=== PATIENT | female | born 1940 | race Caucasian/White ===

== ENCOUNTER 2019-07-30 09:50 | Outpatient (CLI) | payer MEDICARE, SELFPAY ==
[2019-07-30 10:01] LABS: Hemoglobin 10.4 g/dL (11.7-13.8); Mean Corpuscular HGB Conc 31.5 g/dL (32.0-36.0); Mean Corpuscular Hemoglobin 30.7 pg (27.0-31.0); Mean Corpuscular Volume 97.3 fL (78.0-102.0); Mean Platelet Volume 7.9 fl (9.2-11.8); Platelet Count Result 196 K/mm3 (150-420); Red Blood Count 3.39 M/mm3 (4.20-5.40); Red Cell Distribution Width 13.1 % (11.6-14.4); White Blood Count 4.4 K/mm3 (4.8-10.8)
[2019-07-30 13:13] LABS: Blood Urea Nitrogen 29 mg/dL (7-18); Calcium 8.6 mg/dL (8.5-10.1); Carbon Dioxide 27 mmol/L (21-32); Chloride 104 mmol/L (98-108); Estimated Glomerular Filt Rate 45; Glucose 87 mg/dL (70-99); Osmolality Calculated 294 mOsm/kg (285-295); Sodium 140 mmol/L (136-145)
== END 2019-07-30 09:51 | disposition home or self-care (01) ==
LOC: CHSLAB 09:52
PROVIDERS: PCP Family Medicine; Visit Provider Family Medicine
DX: R42 Dizziness and giddiness (principal)
CPT/HCPCS: 36415; 80048; 85027

== ENCOUNTER 2019-10-24 08:47 | Outpatient (CLI) | payer MEDICARE, OTHER, SELFPAY ==
--- NOTE | ~2019-10-24 | CT_ITS ---
EXAMINATION: CT brain wo con DATE: 10/24/2019 11:34 INDICATION: Head injury. TECHNIQUE: Computed tomography (CT) of the head was performed without intravenous contrast. The mA wa s adjusted according to patient size. Iterative reconstruction technique was employed. The dose-lengt h product was 605.33 mGy-cm. COMPARISON: Head CT 09/04/2018 FINDINGS: There are scattered areas of low attenuation in the cerebral white matter, which is within normal limits for the patient's age. There is no intracranial hemorrhage, acute infarction, or abnorm al intracranial mass lesion. The ventricles are normal in size. There are likely changes of ocular le ns replacement surgeries. There is mild mucosal thickening in the ethmoid sinuses. The mastoid air ce lls are normal. There is superior scalp soft tissue swelling. IMPRESSION: 1. Normal aging brain. Reviewed, dictated and finalized at location E. IMPRESSION: 1. Normal aging brain.
[2019-10-27 21:35] LABS: Vitamin D 1,25 (OH)2 Total 28 pg/mL (18-72); Vitamin D2 1,25 (OH)2 16 pg/mL; Vitamin D3 1,25 (OH)2 12 pg/mL
== END 2019-10-24 08:48 | disposition home or self-care (01) ==
PROVIDERS: PCP Family Medicine; Visit Provider Family Medicine
DX: S09.90XA Unspecified injury of head, initial encounter (principal); M53.9 Dorsopathy, unspecified; M17.10 Unilateral primary osteoarthritis, unspecified knee
CPT/HCPCS: 36415; 70450; 82652

== ENCOUNTER 2019-12-28 10:25 | Outpatient (CLI) | payer MEDICARE, SELFPAY ==
[2019-12-28 12:00] LABS: Thyroid Stimulating Hormone Reflex 0.41 u/IU/mL (0.36-3.74)
== END 2019-12-28 10:26 | disposition home or self-care (01) ==
PROVIDERS: PCP Family Medicine
DX: R94.6 Abnormal results of thyroid function studies (principal)
CPT/HCPCS: 36415; 84443

== ENCOUNTER 2020-01-31 10:38 | Outpatient (CLI) | payer MEDICARE, SELFPAY | END 2020-01-31 10:39 | disposition home or self-care (01) | LOC: CHSLAB 10:41 | PROVIDERS: PCP Family Medicine | DX: M85.80 Other specified disorders of bone density and structure, unspecified site (principal) | CPT/HCPCS: 36415; 82306 ==

== ENCOUNTER 2020-03-24 10:00 | Outpatient (CLI) | payer MEDICARE, OTHER, SELFPAY ==
--- NOTE | ~2020-03-24 | US_ITS ---
EXAMINATION: US thyroid DATE: 03/24/2020 10:37 INDICATION: Thyroid nodule. TECHNIQUE: Multiple ultrasound images of the thyroid were obtained. COMPARISON: Ultrasound 01/19/2019 FINDINGS: The right thyroid lobe measures 5.9 x 1.4 x 1.9 cm. The left thyroid lobe measures 5.5 x 1.9 x 2.3 c m. In the right thyroid lobe, there is a 17 mm solid, isoechoic, fkpum-fffk-epqx nodule with lobulat ed margin without echogenic foci (TI-RADS TR4). In the right thyroid lobe, there is a 14 mm solid, hy poechoic, ijusx-khfx-zhok nodule with ill-defined margin without echogenic foci (TR4). In the thyroid isthmus, there is a 20 mm predominantly solid, isoechoic, hlkex-awyi-pujj nodule with lobulated roberto in without echogenic foci (TR4). In the left thyroid lobe, there is a 17 mm predominantly solid, hypo echoic, hqlxc-hjgw-xhqn nodule with ill-defined margin without echogenic foci (TR4). There are multip le smaller nodules in the thyroid. IMPRESSION: 1. Thyroid nodules, likely stable from 01/19/2019 considering differences in technique. Biopsy of 2 no dules on 03/07/2019 gave benign results. Reviewed, dictated and finalized at location A. IMPRESSION: 1. Thyroid nodules, likely stable from 01/19/2019 considering differences in bertha hnique. Biopsy of 2 nodules on 03/07/2019 gave benign results.
== END 2020-03-24 10:01 | disposition home or self-care (01) ==
LOC: CHSIMG 10:06
PROVIDERS: PCP Family Medicine
DX: E04.2 Nontoxic multinodular goiter (principal)
CPT/HCPCS: 76536

== ENCOUNTER 2020-07-15 10:07 | Outpatient (CLI) | payer MEDICARE, SELFPAY | END 2020-07-15 10:08 | disposition home or self-care (01) | PROVIDERS: PCP Family Medicine | DX: M81.0 Age-related osteoporosis without current pathological fracture (principal) | CPT/HCPCS: 36415; 82306 ==

== ENCOUNTER 2021-01-14 10:25 | Outpatient (NON) | payer MEDICARE, SELFPAY | END 2021-01-14 10:26 | disposition home or self-care (01) | LOC: CHSLAB 10:26 | PROVIDERS: Visit Provider Family Medicine | DX: L73.9 Follicular disorder, unspecified (principal) | CPT/HCPCS: 88305 ==

== ENCOUNTER 2021-03-13 12:16 | Outpatient (CLI) | payer MEDICARE, OTHER, SELFPAY ==
--- NOTE | ~2021-03-13 | US_ITS ---
EXAMINATION: US thyroid DATE: 03/13/2021 12:47 INDICATION: Multiple thyroid nodules. TECHNIQUE: Multiple ultrasound images of the thyroid were obtained. COMPARISON: Ultrasound 03/24/2020, 01/19/2019 FINDINGS: The right thyroid lobe measures 5.5 x 1.7 x 2.1 cm. The left thyroid lobe measures 5.4 x 2.2 x 2.6 c m. There are numerous nodules in the thyroid of similar ultrasound appearance. In the right thyroid lobe, there is a 16 mm solid, isoechoic, zsneb-zsbk-wsmf nodule with smooth margin without echogenic foci (TI-RADS TR3). In the right thyroid lobe, there is a 14 mm solid, hypoechoic, uaqhk-kbnm-gtkd ti me than tall nodule with smooth margin without echogenic foci (TR4). In the right thyroid lobe, there is a 16 mm solid, hypoechoic, wlzeo-nwim-iidu nodule with ill-defined margin without echogenic foci (TR4). In the left thyroid lobe, there is a 19 mm predominantly solid, hypoechoic, ndkom-hdee-zngq no dule with lobulated margin without echogenic foci (TR4). IMPRESSION: 1. Multinodular goiter, stable from 01/19/2019 considering differences in technique. Biopsy of 2 nodul es on 03/07/2019 gave benign results. Reviewed, dictated and finalized at location A. IMPRESSION: 1. Multinodular goiter, stable from 01/19/2019 considering differences in techni que. Biopsy of 2 nodules on 03/07/2019 gave benign results.
== END 2021-03-13 12:17 | disposition home or self-care (01) ==
LOC: CHSIMG 12:17
PROVIDERS: PCP Family Medicine
DX: E04.2 Nontoxic multinodular goiter (principal)
CPT/HCPCS: 76536

== ENCOUNTER 2021-07-20 14:13 | Outpatient (CLI) | payer MEDICARE, SELFPAY ==
[2021-07-20 14:31] LABS: Hematocrit 34.6 % (35.0-42.0); Hemoglobin 11.1 g/dL (11.7-13.8); Mean Corpuscular HGB Conc 32.1 g/dL (32.0-36.0); Mean Corpuscular Hemoglobin 32.1 pg (27.0-31.0); Mean Platelet Volume 8.6 fl (9.2-11.8); Platelet Count Result 258 K/mm3 (150-420); Red Blood Count 3.46 M/mm3 (4.20-5.40); Red Cell Distribution Width 12.3 % (11.6-14.4); White Blood Count 5.7 K/mm3 (4.8-10.8)
[2021-07-20 15:35] LABS: Alanine Aminotransferase 17 U/L (14-59); Albumin Level 3.7 g/dL (3.4-5.0); Alkaline Phosphatase 81 U/L (46-116); Anion Gap 11 mmol/L (8-16); Aspartate Amino Transferase 17 U/L (15-37); Bilirubin,Total 0.4 mg/dL (0.00-1.00); Blood Urea Nitrogen 16 mg/dL (7-18); Calcium 8.8 mg/dL (8.5-10.1); Carbon Dioxide 26 mmol/L (21-32); Chloride 105 mmol/L (98-108); Estimated Glomerular Filt Rate 45; Free T4 Free Thyroxine 0.83 ng/dL (0.76-1.46); Glucose 86 mg/dL (70-99); Osmolality Calculated 294 mOsm/kg (285-295); Potassium 4.5 mmol/L (3.5-5.1); Sodium 142 mmol/L (136-145); Total Protein 6.5 g/dL (6.4-8.2)
[2021-07-23 02:45] LABS: Thyroid Peroxidase Antibodies 185 IU/mL (<9)
[2021-07-23 05:57] LABS: Total Triiodothyronine (T3) 128 ng/dL (76-181)
[2021-07-23 14:11] LABS: Thyroid Stimulating Immunoglob <89 % baseline (<140)
== END 2021-07-20 14:14 | disposition home or self-care (01) ==
LOC: CHSLAB 14:15
PROVIDERS: PCP Family Medicine; Visit Provider Family Medicine
DX: E11.9 Type 2 diabetes mellitus without complications (principal); I10 Essential (primary) hypertension
CPT/HCPCS: 36415; 80053; 84439; 84443; 84445; 84480; 85027; 86376

== ENCOUNTER 2021-09-22 14:27 | Outpatient (CLI) | payer MEDICARE, OTHER, SELFPAY | END 2021-09-22 14:28 | disposition home or self-care (01) | LOC: CHSOUTPT 14:31 | PROVIDERS: PCP Family Medicine; Visit Provider Specialist | DX: C44.41 Basal cell carcinoma of skin of scalp and neck (principal) | CPT/HCPCS: 88305 ==

== ENCOUNTER 2022-05-25 12:30 | Emergency (ER) | payer MEDICARE, OTHER, SELFPAY ==
--- NOTE | ~2022-05-25 | XR_ITS ---
EXAMINATION: XR knee RT 2V DATE: 05/25/2022 13:27 INDICATION: Right knee pain post fall TECHNIQUE: AP and flexed lateral views of the right knee were obtained. COMPARISON: None. FINDINGS: Diffuse osteopenia. Right total knee arthroplasty with patellar resurfacing which is in near-anatomic alignment. No periprosthetic lucency to suggest loosening. No fracture. Soft tissues are unremarkabl e with no right knee joint effusion. IMPRESSION: 1. Right total knee arthroplasty with no joint effusion or acute osseous abnormality. Reviewed, dictated and finalized at location L. TICKET CLERK IMPRESSION: 1. Right total knee arthroplasty with no joint effusion or acute osseous abnorm ality.
--- NOTE | ~2022-05-25 | XR_ITS ---
EXAMINATION: XR hip RT 2V w AP pelvis DATE: 05/25/2022 13:26 INDICATION: Right hip pain. Fall. TECHNIQUE: An anteroposterior view pelvis and 2 views of right hip were obtained. COMPARISON: None. FINDINGS: There is lumbar levoscoliosis and severe spondylosis. There is a total left hip arthroplast y in near-anatomic alignment. There is an intertrochanteric fracture of proximal right femur in near- anatomic alignment. There is severe right hip osteoarthritis. Osteitis pubis is noted. IMPRESSION: 1. Nondisplaced intertrochanteric fracture of proximal right femur. 2. Severe right hip osteoarthritis. 3. Total left hip arthroplasty in near-anatomic alignment. Reviewed, dictated and finalized at location A. L SHARPENER
--- NOTE | ~2022-05-25 | CT_ITS ---
EXAMINATION: CT brain wo con DATE: 05/25/2022 13:10 INDICATION: Head injury. TECHNIQUE: Computed tomography (CT) of the head was performed without intravenous contrast. The mA wa s adjusted according to patient size. Iterative reconstruction technique was employed. The dose-lengt h product was 605.33 mGy-cm. COMPARISON: Head CT 10/24/2019 FINDINGS: There are scattered areas of low attenuation in the cerebral white matter, which is within normal limits for the patient's age. There is no intracranial hemorrhage, acute infarction, or abnorm al intracranial mass lesion. The ventricles are normal in size. There are likely changes of ocular le ns replacement surgeries. There is mucosal thickening in the paranasal sinuses. The mastoid air cells are normal. IMPRESSION: 1. Normal aging brain. Reviewed, dictated and finalized at location A. ER RECEPTIONIST IMPRESSION: 1. Normal aging brain.
[2022-05-25 12:39] VITALS: BP 190/78; PULSE 85; RESP 16; TEMP 36.8; O2SAT 100
--- NOTE | 2022-05-25 12:41 | ED.FALL ---
HPI - Fall General Chief Complaint: Fall Stated Complaint: Ambulance Time Seen by Provider: 05/25/22 12:39 Source: patient and family Mode of arrival: ambulatory History of Present Illness HPI Narrative: 81-year-old female with a history of dementia, traumatic brain injury, hypertension, status post bilateral knee replacement and left hip replacement tripped on a rolled carpet at the grocery store and fell on her left side. She presents to the ER with -- right hip pain with decreased range of motion -- right knee pain no head injury or loss of consciousness. MD complaint: fall Onset (ago): hour(s) ( fell 1 hour ago) Fall from: standing Fall witnessed: yes, by bystander Place fall occurred: other ( fell at the grocery) Loss of consciousness: none Prolonged down time: no Symptoms prior to fall: none Context: tripped/slipped Location of injury: other ( right knee, right hip) Location of injury - extremities: Right: thigh and knee Severity: moderate Quality: aching Associated symptoms (after fall): unable to walk Related Data Allergies Allergy/AdvReac Type Severity Reaction Status Date / Time aspirin Allergy Unknown Unknown Verified 05/25/22 12:45 Review of Systems Review of Systems: All systems reviewed & are unremarkable except as noted in HPI and below Constitutional: Constitutional: Reports as per HPI and Reports no additional constitutional complaints Eyes: Eyes: Reports as per HPI and Reports no additional eye complaints ENT: Reports system reviewed and no additional complaints, except as documented and Reports as per HPI Cardiovascular: Cardiovascular: Reports as per HPI and Reports no additional cardiovascular complaints Respiratory: Respiratory: Reports as per HPI and Reports no additional respiratory complaints Gastrointestinal: Gastrointestinal: Reports as per HPI and Reports no additional gastrointestinal complaints Genitourinary: Genitourinary: Reports no additional female genitourinary complaints and Reports as per HPI Musculoskeletal: Musculoskeletal: Reports no additional musculoskeletal complaints and Reports as per HPI Comments: Right hip and right knee pain with decreased range of motion Integumentary/Breasts: Skin/Breast: Reports system reviewed and no additional complaints, except as docu and Reports as per HPI Comments: status post left mastectomy for breast cancer Neurologic: Reports system reviewed and no additional complaints, except as documented and Reports as per HPI Psychiatric: Psychiatric: Reports no additional psychiatric complaints and Reports as per HPI Endocrine: Endocrine: Reports no additional endocrine complaints and Reports as per HPI Hematologic/Lymphatic: Hematologic/Lymphatic: Reports no additional hematologic/lymphatic complaints and Reports as per HPI Allergic/Immunologic: Allergic/Immunologic: Reports no additional allergic/immunologic complaints and Reports as per HPI PMFSH Past Medical History Medical History Breast cancer Left Breast Removed. Hypertension Osteoporosis Overweight TBI (traumatic brain injury) Surgical History Surgical History History of bilateral knee replacement History of left hip replacement Hx of cataract surgery Hx of tonsillectomy Family History Family History Father Cancer Mother Acute myocardial infarction Rheumatoid arthritis Heart disease Mother Acute myocardial infarction Family history of rheumatoid arthritis Father Family history of malignant neoplasm Social History Social History Smoking status: Never smoker Additional living arrangements comments: . 4 children. 2 step-children. Exam Const: General: no acute distress Orientation/consciousness: pat
[2022-05-25] MEDS: HYDROcodone/acetaminophen (*CRX) 5-325 MG TABLET 1 TAB PO (13:26)
--- NOTE | 2022-05-25 13:42 | ECG_ITS ---
Measurements Intervals [place] Rate: 83 P: 58 KS: 138 QRS: -21 QRSD: 93 T: 62 QT: 357 QTc: 422 Interpretive Statements SINUS RHYTHM BORDERLINE LEFT AXIS DEVIATION [QRS AXIS < -20] ABNORMAL ECG NO PREVIOUS ECG AVAILABLE FOR COMPARISON Electronically Signed On 05-25-2022 15:38:34 FINISHER MACHINE by Zion Rdz M.D.
[2022-05-25 14:13] LABS: Basophils Absolute Auto 0.02 K/mm3 (0.00-0.10); Basophils Percent Auto 0.4 % (0.0-1.0); Eosinophils Absolute Auto 0.06 K/mm3 (0.02-0.50); Eosinophils Percent Auto 1.1 % (1.0-6.0); Hematocrit 36.2 % (35.0-42.0); Hemoglobin 11.1 g/dL (11.7-13.8); Immature Granulocyte Absolute 0.04 K/mm3 (0.00-0.00); Immature Granulocyte Percent A 0.7 % (0.0-0.0); Lymphocytes Absolute Auto 1.28 K/mm3 (1.10-4.50); Lymphocytes Percent Auto 23.2 % (18.0-42.0); Mean Corpuscular HGB Conc 30.7 g/dL (32.0-36.0); Mean Corpuscular Hemoglobin 31.8 pg (27.0-31.0); Mean Corpuscular Volume 103.7 fL (78.0-102.0); Monocytes Absolute Auto 0.37 K/mm3 (0.10-0.90); Monocytes Percent Auto 6.7 % (2.0-11.0); Neutrophils Absolute Auto 3.7 K/mm3 (1.7-7.2); Neutrophils Percent Auto 67.9 % (50.0-70.0); Platelet Count Result 193 K/mm3 (150-420); Red Blood Count 3.49 M/mm3 (4.20-5.40); Red Cell Distribution Width 12.6 % (11.6-14.4); White Blood Count 5.5 K/mm3 (4.8-10.8)
[2022-05-25 14:28] LABS: INR 1.1; Partial Thromboplastin Time 27.9 SEC (23.90-30.70); Prothrombin Time 12.1 Seconds (9.50-12.10)
[2022-05-25] MEDS: LACTATED RINGERS 1,000 ML 150 ML IV CONT (14:29)
[2022-05-25] MEDS: HYDROmorphone HCL INJ (*CRX) 2 MG/ML VIAL 0.5 MG IM (14:30)
[2022-05-25] MEDS: ONDANSETRON HCL ODT 4 MG TABLET PO (14:30)
[2022-05-25 14:35] LABS: Alanine Aminotransferase 23 U/L (14-59); Albumin Level 3.7 g/dL (3.4-5.0); Alkaline Phosphatase 73 U/L (46-116); Anion Gap 9 mmol/L (8-16); Aspartate Amino Transferase 27 U/L (15-37); Bilirubin,Total 0.5 mg/dL (0.00-1.00); Blood Urea Nitrogen 16 mg/dL (7-18); Calcium 8.6 mg/dL (8.5-10.1); Carbon Dioxide 25 mmol/L (21-32); Chloride 107 mmol/L (98-108); Estimated Glomerular Filt Rate 46; Glucose 90 mg/dL (70-99); NT Pro B Type Natriuretic Pept 862 pg/mL (0-450); Osmolality Calculated 293 mOsm/kg (285-295); Potassium 4.1 mmol/L (3.5-5.1); Sodium 141 mmol/L (136-145); Total Protein 6.7 g/dL (6.4-8.2)
[2022-05-25 14:39] LABS: Thyroid Stimulating Hormone 0.73 uIU/mL (0.36-3.74); Troponin I 9.9 ng/L (0.00-60.4)
[2022-05-25 14:51] LABS: SARS-CoV-2 RNA PCR Negative (Negative)
[2022-05-25] MEDS: HYDROmorphone HCL INJ (*CRX) 2 MG/ML VIAL 0.5 MG IV PUSH (17:51)
[2022-05-25 18:00] VITALS: BP 140/90; PULSE 80; RESP 18; TEMP 36.6; O2SAT 96
== END 2022-05-25 18:02 | disposition short-term general hospital (02) ==
PROVIDERS: Emergency Provider Internal Medicine Critical Care Medicine; PCP Family Medicine
DX: S72.141A Displaced intertrochanteric fracture of right femur, initial encounter for closed fracture (principal); F03.90 Unspecified dementia, unspecified severity, without behavioral disturbance, psychotic disturbance, mood disturbance, and anxiety; I10 Essential (primary) hypertension; Z96.653 Presence of artificial knee joint, bilateral; Z85.3 Personal history of malignant neoplasm of breast; Z20.822 Contact with and (suspected) exposure to COVID-19; W01.0XXA Fall on same level from slipping, tripping and stumbling without subsequent striking against object, initial encounter; Y92.512 Supermarket, store or market as the place of occurrence of the external cause
CPT/HCPCS: 36415; 70450; 73502; 73560; 80053; 83880; 84443; 84484; 85025; 85610; 85730; 93005; 96361; 96372; 96374; 99285; A9270; J1170; J7120; U0003; U0005

== ENCOUNTER 2022-07-14 13:21 | Outpatient (CLI) | payer MEDICARE, OTHER, SELFPAY ==
--- NOTE | ~2022-07-14 | XR_ITS ---
EXAMINATION: XR hip RT 2V w AP pelvis DATE: 07/14/2022 13:48 INDICATION: Closed basicervical fracture of right femur. Follow-up. TECHNIQUE: An anteroposterior view pelvis and 2 views of right hip were obtained. COMPARISON: Pelvis and right hip radiographs 05/25/2022 FINDINGS: There is an intertrochanteric fracture of proximal right femur in near-anatomic alignment s tatus post open reduction internal fixation with antegrade intramedullary angelina, femoral head/neck scre w, and distal interlocking screw. There is severe right hip osteoarthritis. Osteitis pubis is noted. IMPRESSION: 1. Intertrochanteric fracture of proximal right femur status post open reduction internal fixation. 2. Severe right hip osteoarthritis. Reviewed, dictated and finalized at location A. ORESIST PRINTER IMPRESSION: 1. Intertrochanteric fracture of proximal right femur status post open reductio n internal fixation. 2. Severe right hip osteoarthritis.
== END 2022-07-14 13:22 | disposition home or self-care (01) ==
LOC: CHSIMG 13:23
PROVIDERS: PCP Family Medicine
DX: S72.041A Displaced fracture of base of neck of right femur, initial encounter for closed fracture (principal); M16.11 Unilateral primary osteoarthritis, right hip
CPT/HCPCS: 73502

== ENCOUNTER 2022-08-24 15:30 | Outpatient (CLI) | payer MEDICARE, OTHER, SELFPAY ==
[2022-08-24 15:54] LABS: Hematocrit 34.1 % (35.0-42.0); Mean Corpuscular HGB Conc 32.3 g/dL (32.0-36.0); Mean Corpuscular Hemoglobin 30.3 pg (27.0-31.0); Mean Corpuscular Volume 93.9 fL (78.0-102.0); Mean Platelet Volume 9.1 fl (9.2-11.8); Platelet Count Result 384 K/mm3 (150-420); Red Blood Count 3.63 M/mm3 (4.20-5.40); White Blood Count 6.9 K/mm3 (4.8-10.8)
[2022-08-24 16:51] LABS: Thyroid Stimulating Hormone Reflex 0.43 u/IU/mL (0.36-3.74)
[2022-08-24 17:40] LABS: Alanine Aminotransferase 221 U/L (14-59); Albumin Level 3.1 g/dL (3.4-5.0); Alkaline Phosphatase 215 U/L (46-116); Anion Gap 15 mmol/L (8-16); Aspartate Amino Transferase 103 U/L (15-37); Bilirubin,Total 0.8 mg/dL (0.00-1.00); Blood Urea Nitrogen 39 mg/dL (7-18); CRP 0.8 mg/dL (0.0-0.9); Calcium 8.6 mg/dL (8.5-10.1); Carbon Dioxide 23 mmol/L (21-32); Chloride 105 mmol/L (98-108); Estimated Glomerular Filt Rate 50; Folic Acid 7.8 ng/mL (8.6->20); Glucose 123 mg/dL (70-99); Osmolality Calculated 306 mOsm/kg (285-295); Potassium 4.2 mmol/L (3.5-5.1); Sodium 143 mmol/L (136-145); Total Protein 6.1 g/dL (6.4-8.2); Vitamin B12 1323 pg/mL (193-986)
[2022-08-30 17:04] LABS: Hepatitis A Antibody IgM Nonreactive; Hepatitis B Core Antibody Nonreactive (Nonreactive); Hepatitis B Surface Antigen Nonreactive (Nonreactive); Hepatitis C Signal to Cutoff 0.04 ratio (<1.00); Hepatitis C Virus Antibody Nonreactive (Nonreactive)
== END 2022-08-24 15:31 | disposition home or self-care (01) ==
LOC: CHSLAB 15:33
PROVIDERS: PCP Family Medicine; Visit Provider Family Medicine
DX: E11.9 Type 2 diabetes mellitus without complications (principal); E53.8 Deficiency of other specified B group vitamins; R53.82 Chronic fatigue, unspecified
CPT/HCPCS: 36415; 80053; 80074; 82607; 82746; 84443; 85027; 86140

== ENCOUNTER 2022-08-28 16:07 | Emergency (ER) | payer MEDICARE, OTHER, SELFPAY ==
--- NOTE | ~2022-08-28 | CT_ITS ---
EXAMINATION: CT brain wo con DATE: 08/28/2022 17:36 INDICATION: Fall. Weakness. TECHNIQUE: Computed tomography (CT) of the head was performed without intravenous contrast. The mA wa s adjusted according to patient size. Iterative reconstruction technique was employed. Exam dose: 60 5.33 mGy-cm total exam DLP. COMPARISON: 05/25/2022 CT brain FINDINGS: Bilateral vertebral artery, basilar artery and bilateral carotid siphon and supraclinoid in ternal carotid artery calcifications. There is nonspecific diminished attenuation of the cerebral whi te matter, likely due to chronic small vessel ischemic changes. No intracranial mass lesion or hemorrhage or cerebrovascular accident is detected. No midline shift o r mass effect effect. Ventricular size is within normal range. There is pneumocephalus. Different diagnosis for pneumocephalus would be neuro trauma, especially the skull base fractures. Other causes include tumor, infection or iatrogenic cause intracranial and jenni gical surgical procedures or local lumbar procedure. No skull fracture is noted. Included paranasal sinuses and mastoid air cells are unremarkable. IMPRESSION: Pneumocephalus, uncertain etiology; no skull fracture is evident Cerebral atherosclerosis Dr. Rizzo discussed the findings of pneumocephalus with emergency room physician Dr. Escobedo. Dr. Miguel coreas indicated there were no external signs of head injury such as bruising or hematoma. Reviewed, dictated and finalized at Location A. Reviewed, dictated and finalized at location A. IMPRESSION: Pneumocephalus, uncertain etiology; no skull fracture is evident Cerebral atherosclerosis Dr. Rizzo discussed the findings of pneumocephalus with emergency room physician Dr. Escobedo. Dr. Cleary indicated there were no external signs of head injury such as bruising or hematoma.
--- NOTE | ~2022-08-28 | XR_ITS ---
XR chest 1V DATE: 08/28/2022 17:37 INDICATION: Fall. TECHNIQUE: Upright frontal views COMPARISON: None FINDINGS: Comminuted fracture of the right humerus including surgical neck and greater tuberosity. Th ere is osteopenia. There is levoscoliosis of the thoracolumbar spine. Normal heart size. Aortic calcification. No hilar or mediastinal enlargement. No pulmonary infiltrate or consolidation, pleural effusion or pulmonary vascular congestion or pneumo thorax. IMPRESSION: Fracture proximal right humerus No active cardiopulmonary disease Aortic atherosclerosis Reviewed, dictated and finalized at location A.
--- NOTE | ~2022-08-28 | XR_ITS ---
XR pelvis 1-2V DATE: 08/28/2022 17:13 INDICATION: Fall today. Right pelvic and hip pain TECHNIQUE: AP pelvis COMPARISON: July 14, 2022 pelvis and right hip FINDINGS: Severe degenerative disc disease at L4-5 and L5-S1. Osteitis pubis. Normal alignment at the pubic symphysis and sacroiliac joints. No pelvic fracture or bone destruction is evident. Severe right hip osteoarthritis. Antegrade intramedullary angelina and compression screw of proximal right femur. Status post left total hip arthroplasty. IMPRESSION: No pelvic or recent hip fracture is evident Severe right hip osteoarthritis Status post ORIF right old intertrochanteric fracture Status post left total hip arthroplasty Reviewed, dictated and finalized at location A.
--- NOTE | ~2022-08-28 | XR_ITS ---
XR shoulder RT min 2V DATE: 08/28/2022 17:12 INDICATION: Fall today. Pain throughout shoulder TECHNIQUE: 3 views of right shoulder COMPARISON: None FINDINGS: There is a comminuted fracture of the proximal right humerus including transverse surgical neck fracture and fracture of the greater tuberosity, with minimal displacement or angulation. No dis location is noted. Diffuse osteopenia. IMPRESSION: Comminuted fracture of the right proximal humerus including transverse surgical neck frac ture and greater tuberosity fracture Osteopenia Reviewed, dictated and finalized at location A. IMPRESSION: Comminuted fracture of the right proximal humerus including transve rse surgical neck fracture and greater tuberosity fracture Osteopenia
[2022-08-28 16:07] VITALS: BP 107/63; PULSE 114; RESP 18; TEMP 36.8; O2SAT 96
--- NOTE | 2022-08-28 16:20 | ED.FALL ---
HPI - Fall General Chief Complaint: Fall Stated Complaint: fall right arm injury Time Seen by Provider: 08/28/22 16:19 Source: patient Mode of arrival: ambulatory Limitations: no limitations History of Present Illness HPI Narrative: 81-year-old female with history TBI, dementia, Renal insufficiency,breast cancer status post left mastectomy, status post left hip rests placement status post bilateral knee replacement, chronic pain with a recurrent falls, Cancer of the scalp status post treatment 7 months ago, saw primary care physician on 08/24/2022 for weight loss, chronic diarrhea and decreased appetite. He ordered blood work which was significant for elevated LFTs. He stopped gabapentin and started her on Lyrica. today the patient's right leg gave out following which she fell on her right side. No head injury. No ENT bleeding. No LOC. The patient presents with -- right shoulder pain with decreased range of motion. -- Right upper arm pain. -- The patient was found down by daughter. unsure as to how long she was on the floor. she does not complain of any other pain. MD complaint: fall Onset (ago): unknown Fall from: standing Fall witnessed: no Place fall occurred: home Loss of consciousness: none Symptoms prior to fall: none Context: other ( Right leg gave out.) Location of injury - extremities: Right: shoulder and arm Severity scale (1-10): 5 Quality: aching Related Data Allergies Allergy/AdvReac Type Severity Reaction Status Date / Time aspirin Allergy Unknown Unknown Verified 08/28/22 16:40 Review of Systems Review of Systems: All systems reviewed & are unremarkable except as noted in HPI and below Constitutional: Constitutional: Reports as per HPI and Reports no additional constitutional complaints Eyes: Eyes: Reports as per HPI and Reports no additional eye complaints ENT: Reports system reviewed and no additional complaints, except as documented and Reports as per HPI Cardiovascular: Cardiovascular: Reports as per HPI and Reports no additional cardiovascular complaints Respiratory: Respiratory: Reports as per HPI and Reports no additional respiratory complaints Gastrointestinal: Gastrointestinal: Reports as per HPI and Reports no additional gastrointestinal complaints Musculoskeletal: Musculoskeletal: Reports no additional musculoskeletal complaints Comments: Right shoulder pain made worse by movement Integumentary/Breasts: Skin/Breast: Reports system reviewed and no additional complaints, except as docu and Reports as per HPI Neurologic: Reports system reviewed and no additional complaints, except as documented and Reports as per HPI Psychiatric: Psychiatric: Reports no additional psychiatric complaints and Reports as per HPI Endocrine: Endocrine: Reports no additional endocrine complaints and Reports as per HPI Hematologic/Lymphatic: Hematologic/Lymphatic: Reports no additional hematologic/lymphatic complaints and Reports as per HPI [facility] Past Medical History Medical History Breast cancer Left Breast Removed. Hypertension Osteoporosis Overweight TBI (traumatic brain injury) Surgical History Surgical History History of bilateral knee replacement History of left hip replacement Hx of cataract surgery Hx of tonsillectomy Family History Family History Father Cancer Mother Acute myocardial infarction Rheumatoid arthritis Heart disease Mother Acute myocardial infarction Family history of rheumatoid arthritis Father Family history of malignant neoplasm Social History Social History Smoking status: Never smoker Living arrangements: with family Additional living arrangements comments: . 4 children. 2 step-children. Occupati
--- NOTE | 2022-08-28 16:47 | ECG_ITS ---
Measurements Intervals [place] Rate: 116 P: [place]: 0 QRS: -16 QRSD: 77 T: 142 QT: 296 QTc: 411 Interpretive Statements ATRIAL FLUTTER/TACHYCARDIA WITH RAPID VENTRICULAR RESPONSE VENTRICULAR PREMATURE COMPLEX DELAYED PRECORDIAL R/S TRANSITION LEFT VENTRICULAR HYPERTROPHY WITH ST-T CHANGE BORDERLINE ST-T WAVE ABNORMALITY- ANTEROLAT/INF LEADS BASELINE ARTIFACT- I, II, III, AVR, AVL, AVF, V1-V6 ABNORMAL ECG COMPARED TO ECG 05/25/2022 13:53:25 ATRIAL FLUTTER/TACHYCARDIA NOW PRESENT Electronically Signed On 08-28-2022 20:47:33 CDT by Víctor Love D.O.
[2022-08-28] MEDS: MORPHINE SULFATE (*CRX) 4 MG/ML INJ 2 MG IM (17:41)
[2022-08-28] MEDS: ONDANSETRON HCL ODT 4 MG TABLET PO (17:41)
[2022-08-28 17:57] LABS: Basophils Absolute Auto 0.02 K/mm3 (0.00-0.10); Basophils Percent Auto 0.2 % (0.0-1.0); Hematocrit 29.7 % (35.0-42.0); Hemoglobin 9.7 g/dL (11.7-13.8); Immature Granulocyte Absolute 0.08 K/mm3 (0.00-0.00); Immature Granulocyte Percent A 0.6 % (0.0-0.0); Lymphocytes Absolute Auto 0.84 K/mm3 (1.10-4.50); Lymphocytes Percent Auto 6.8 % (18.0-42.0); Mean Corpuscular HGB Conc 32.7 g/dL (32.0-36.0); Mean Corpuscular Hemoglobin 30.6 pg (27.0-31.0); Mean Corpuscular Volume 93.7 fL (78.0-102.0); Mean Platelet Volume 8.3 fl (9.2-11.8); Monocytes Absolute Auto 0.91 K/mm3 (0.10-0.90); Monocytes Percent Auto 7.4 % (2.0-11.0); Neutrophils Absolute Auto 10.5 K/mm3 (1.7-7.2); Platelet Count Result 403 K/mm3 (150-420); Red Blood Count 3.17 M/mm3 (4.20-5.40); Red Cell Distribution Width 14.6 % (11.6-14.4); White Blood Count 12.3 K/mm3 (4.8-10.8)
[2022-08-28 18:01] VITALS: BP 97/61; PULSE 110; RESP 18; O2SAT 100
[2022-08-28 18:14] LABS: Alanine Aminotransferase 83 U/L (14-59); Albumin Level 3.1 g/dL (3.4-5.0); Alkaline Phosphatase 133 U/L (46-116); Anion Gap 12 mmol/L (8-16); Aspartate Amino Transferase 42 U/L (15-37); Bilirubin,Total 0.7 mg/dL (0.00-1.00); Blood Urea Nitrogen 25 mg/dL (7-18); Calcium 8.7 mg/dL (8.5-10.1); Carbon Dioxide 26 mmol/L (21-32); Chloride 103 mmol/L (98-108); Creatine Kinase 103 U/L (26-192); Estimated CRCL calculation 29 ml/min; Estimated Glomerular Filt Rate 42; Glucose 151 mg/dL (70-99); Osmolality Calculated 299 mOsm/kg (285-295); Potassium 3.6 mmol/L (3.5-5.1); Sodium 141 mmol/L (136-145); Total Protein 6.4 g/dL (6.4-8.2)
[2022-08-28 18:47] VITALS: BP 131/65; PULSE 94; RESP 16; TEMP 36.8; O2SAT 97
== END 2022-08-28 19:05 | disposition short-term general hospital (02) ==
PROVIDERS: Emergency Provider Internal Medicine Critical Care Medicine; PCP Family Medicine
DX: G93.89 Other specified disorders of brain (principal); S42.201A Unspecified fracture of upper end of right humerus, initial encounter for closed fracture; C44.40 Unspecified malignant neoplasm of skin of scalp and neck; F03.90 Unspecified dementia, unspecified severity, without behavioral disturbance, psychotic disturbance, mood disturbance, and anxiety; I10 Essential (primary) hypertension; Z85.3 Personal history of malignant neoplasm of breast; Z96.642 Presence of left artificial hip joint; Z96.653 Presence of artificial knee joint, bilateral; W19.XXXA Unspecified fall, initial encounter; Y92.009 Unspecified place in unspecified non-institutional (private) residence as the place of occurrence of the external cause
CPT/HCPCS: 36415; 70450; 71045; 72170; 73030; 80053; 82550; 84484; 85025; 93005; 96372; 99285; A4565; A9270; J2270

== ENCOUNTER 2022-10-13 19:21 | Observation (INO) | payer MEDICARE, OTHER, SELFPAY ==
--- NOTE | ~2022-10-13 | XR_ITS ---
EXAMINATION: XR chest 1V portable Exam Date/Time: 10/13/2022 21:30 CDT HISTORY: WEAKNESS Comparison: 08/28/2022. RESULT: Lines, tubes, and devices: None. Lungs and pleura: Senescent changes, otherwise clear. Cardiomediastinal silhouette: Stable. Other: No acute osseous or upper abdominal finding. Old right humeral head fracture. IMPRESSION: No acute cardiopulmonary process. Reviewed, dictated and finalized at location K.
--- NOTE | ~2022-10-13 | US_ITS ---
EXAMINATION: US carotid duplex BI DATE: 10/14/2022 08:08 INDICATION: TIA TECHNIQUE: Grayscale, color Doppler, and pulsed Doppler images of the cervical carotid arteries were obtained. The degree of vessel stenosis is placed in one of the following categories: normal, <50%, 5 0-69%, >=70% but less than near-occlusion, near-occlusion, or total occlusion. Note that percent sten osis relative to normal distal artery lumen diameter is indirectly measured from velocity measurement s as described by Poncho, et al. Radiology 2003; 229:340-346. Notes: Normal: Peak systolic velocity <125 centimeters/sec and no plaque <50%. Peak systolic velocity <125 ( EDV <40; ICA/CCA PSV ratio <2.0; used these factors only a tandem lesions or low cardiac output or co ntralateral disease) 50-69 %: PSV 125-230 (EDV 40-100; ratio 2-4) >= 70% but less than near occlusion: PSV greater than 230 (EDV > 100; ratio> 4.0) Near Occlusion: PSV that is variable; markedly narrowed lumen Occlusion: Absent flow on color/spectral Doppler and no lumen on pastor scale. COMPARISON: None. FINDINGS: RIGHT: The right common carotid artery (CCA) peak systolic velocity (PSV) is 69 cm/s. The right internal car otid artery (ICA) PSV is 100 cm/s. The right ICA end-diastolic velocity (EDV) is 16 cm/s. The right I CA/CCA PSV ratio is 1.4. The external carotid artery (ECA) PSV is 72 cm/s. There is antegrade flow in the right vertebral artery. LEFT: The left CCA PSV is 76 cm/s. The left ICA PSV is 136 cm/s. The left ICA EDV is 35 cm/s. The left ICA/ CCA PSV ratio is 1.8. The ECA PSV is 71 cm/s. There is antegrade flow in the left vertebral artery. IMPRESSION: 1. Less than 50% stenosis in the right internal carotid artery by sonographic criteria. 2. 50-69% stenosis in the left internal carotid artery by sonographic criteria. Reviewed, dictated and finalized at location L. IMPRESSION: 1. Less than 50% stenosis in the right internal carotid artery by sonographic c ianeria. 2. 50-69% stenosis in the left internal carotid artery by sonographic criteria.
--- NOTE | ~2022-10-13 | CT_ITS ---
EXAMINATION: CT brain wo con DATE: 10/13/2022 20:29 INDICATION: WEAKNESS . TECHNIQUE: Computed tomography (CT) of the head was performed without intravenous contrast. The mA wa s adjusted according to patient size. Iterative reconstruction technique was employed. The dose-lengt h product was 605.33 mGy-cm. COMPARISON: 08/28/2022. FINDINGS: No acute intracranial hemorrhage or extra-axial fluid collection. Interval resolution of the previous ly described pneumocephalus. No hydrocephalus, mass, or herniation. No acute ischemic infarct. Unremarkable dural venous sinus attenuation. No acute osseous abnormality. Stable dermal lesion near the vertex. The aerated spaces are clear. Mild atrophy and chronic white matter change. Atherosclerotic intracranial calcification. Bilateral l ens replacements. IMPRESSION: No acute intracranial process. Reviewed, dictated and finalized at location K.
[2022-10-13 19:29] VITALS: BP 110/65; PULSE 104; RESP 16; TEMP 37.1; O2SAT 96
--- NOTE | 2022-10-13 19:31 | ECG_ITS ---
Measurements Intervals [place] Rate: 100 P: 50 IA: 124 QRS: 7 QRSD: 83 T: 214 QT: 340 QTc: 438 Interpretive Statements SINUS TACHYCARDIA WITH SHORT IA INTERVAL ST-T WAVE ABNORMALITY IN ANTEROLATERAL LEADS- CONSIDER ISCHEMIA BASELINE ARTIFACT- I, II, AVR, AVL, AVF, V1 ABNORMAL ECG COMPARED TO ECG 08/28/2022 17:42:48 SINUS TACHYCARDIA NOW PRESENT Electronically Signed On 10-13-2022 21:19:27 CDT by Víctor Love D.O.
[2022-10-13] MEDS: ONDANSETRON INJ 4 MG/2 ML VIAL (19:35)
[2022-10-13 19:54] LABS: Basophils Absolute Auto 0.02 K/mm3 (0.00-0.10); Basophils Percent Auto 0.3 % (0.0-1.0); Eosinophils Absolute Auto 0.01 K/mm3 (0.02-0.50); Eosinophils Percent Auto 0.2 % (1.0-6.0); Hematocrit 26.5 % (35.0-42.0); Hemoglobin 8.4 g/dL (11.7-13.8); Immature Granulocyte Absolute 0.06 K/mm3 (0.00-0.00); Immature Granulocyte Percent A 0.9 % (0.0-0.0); Lymphocytes Absolute Auto 0.96 K/mm3 (1.10-4.50); Lymphocytes Percent Auto 14.9 % (18.0-42.0); Mean Corpuscular HGB Conc 31.7 g/dL (32.0-36.0); Mean Corpuscular Hemoglobin 31.2 pg (27.0-31.0); Mean Corpuscular Volume 98.5 fL (78.0-102.0); Mean Platelet Volume 8.8 fl (9.2-11.8); Monocytes Absolute Auto 0.47 K/mm3 (0.10-0.90); Monocytes Percent Auto 7.3 % (2.0-11.0); Neutrophils Absolute Auto 4.9 K/mm3 (1.7-7.2); Neutrophils Percent Auto 76.4 % (50.0-70.0); Platelet Count Result 301 K/mm3 (150-420); Red Blood Count 2.69 M/mm3 (4.20-5.40); Red Cell Distribution Width 20.8 % (11.6-14.4); White Blood Count 6.5 K/mm3 (4.8-10.8)
[2022-10-13 20:07] LABS: INR 1.3; Prothrombin Time 14.1 Seconds (9.50-12.10)
[2022-10-13 20:12] LABS: Lactic Acid Reflex 4.4 mmol/L (0.4-2.0)
[2022-10-13 20:19] LABS: Alanine Aminotransferase 13 U/L (14-59); Albumin Level 1.8 g/dL (3.4-5.0); Alkaline Phosphatase 144 U/L (46-116); Anion Gap 15 mmol/L (8-16); Aspartate Amino Transferase 26 U/L (15-37); Bilirubin,Total 0.4 mg/dL (0.00-1.00); Blood Urea Nitrogen 18 mg/dL (7-18); Calcium 7.3 mg/dL (8.5-10.1); Carbon Dioxide 20 mmol/L (21-32); Chloride 108 mmol/L (98-108); Estimated CRCL calculation 25 ml/min; Estimated Glomerular Filt Rate 41; Glucose 106 mg/dL (70-99); Lipase 14 U/L (16-77); NT Pro B Type Natriuretic Pept 4566 pg/mL (0-450); Osmolality Calculated 297 mOsm/kg (285-295); Potassium 3.5 mmol/L (3.5-5.1); Sodium 143 mmol/L (136-145); Thyroid Stimulating Hormone 0.88 uIU/mL (0.36-3.74); Total Protein 4.6 g/dL (6.4-8.2); Troponin I 57.7 ng/L (0.00-60.4)
--- NOTE | 2022-10-13 20:21 | ED.AMS ---
HPI - Altered Mental Status General Chief Complaint: Weakness Stated Complaint: Weakness Time Seen by Provider: 10/13/22 19:31 Source: patient and family Mode of arrival: ambulatory History of Present Illness HPI narrative: 81-year-old female with left breast cancer status post mastectomy many years ago, hypertension, traumatic brain injury, stuporous is, status post bilateral knee replacement, status post left hip replacement, gallstones, dementia had the recent humerus fracture for which she was placed in the care home for 3 days. Subsequently the patient has had -- decreased oral intake -- weakness. the patient walks a few steps with her walker and then has to sit down. -- Today the patient was sitting on the bathroom toilet. EMS picked her up. She became unresponsive for 1 minute with spontaneous resolution. No focal neuro deficits noted . Patient was hemodynamically stable. MD complaint: altered mental status Onset (ago): hour(s) ( One episode 1 hour ago. last known well 1 hour ago) Timing confirmed by: family member Severity: mild Consistency of symptoms: waxing and waning Associated symptoms: denies other symptoms Related Data Allergies Allergy/AdvReac Type Severity Reaction Status Date / Time aspirin Allergy Unknown Unknown Verified 09/13/22 07:41 Review of Systems Review of Systems: All systems reviewed & are unremarkable except as noted in HPI and below Constitutional: Constitutional: Reports as per HPI and Reports no additional constitutional complaints Eyes: Eyes: Reports as per HPI and Reports no additional eye complaints ENT: Reports system reviewed and no additional complaints, except as documented and Reports as per HPI Cardiovascular: Cardiovascular: Reports as per HPI and Reports no additional cardiovascular complaints Respiratory: Respiratory: Reports as per HPI and Reports no additional respiratory complaints Gastrointestinal: Gastrointestinal: Reports as per HPI and Reports no additional gastrointestinal complaints Musculoskeletal: Musculoskeletal: Reports no additional musculoskeletal complaints Integumentary/Breasts: Skin/Breast: Reports system reviewed and no additional complaints, except as docu and Reports as per HPI Neurologic: Reports system reviewed and no additional complaints, except as documented and Reports as per HPI Psychiatric: Psychiatric: Reports no additional psychiatric complaints and Reports as per HPI Endocrine: Endocrine: Reports no additional endocrine complaints and Reports as per HPI Hematologic/Lymphatic: Hematologic/Lymphatic: Reports no additional hematologic/lymphatic complaints and Reports as per HPI Allergic/Immunologic: Allergic/Immunologic: Reports no additional allergic/immunologic complaints and Reports as per HPI [facility] Past Medical History Medical History Breast cancer Left Breast Removed. Hypertension Osteoporosis Overweight TBI (traumatic brain injury) Surgical History Surgical History History of bilateral knee replacement History of left hip replacement Hx of cataract surgery Hx of tonsillectomy Family History Family History Father Cancer Mother Acute myocardial infarction Rheumatoid arthritis Heart disease Mother Acute myocardial infarction Family history of rheumatoid arthritis Father Family history of malignant neoplasm Social History Social History Smoking status: Never smoker Living arrangements: with family Additional living arrangements comments: . 4 children. 2 step-children. Occupation/Education: retired Exam Const: General: no acute distress Nutritional Appearance: thin Orientation/consciousness: patient oriented x3 Limitations: no limitations HE
[2022-10-13 20:31] LABS: Influenza A QL RT-PCR Negative (Negative); Influenza B QL RT-PCR Negative (Negative); SARS-CoV-2 RNA PCR Negative (Negative)
[2022-10-13 20:32] LABS: RSV RNA, RT-PCR Negative (Negative)
[2022-10-13 20:43] LABS: Base Excess ABG -4.2 mmol/L (0-2); HCO3 ABG 19.4 mmol/L (23-29); Oxygen Saturation ABG 95.3 % (95-97); Oxyhemoglobin 94.6 % (94-100); PCO2 ABG 29.9 mmHg (35-45); PO2 ABG 78.5 mmHg (75-85); Total Hemoglobin 9.7 g/dL (12.0-18.0); pH ABG 7.43 (7.35-7.45)
[2022-10-13 20:44] LABS: Device ROOM AIR; Modified Allen's Test Pass; Site Drawn RIGHT RADIAL
[2022-10-13] MEDS: SODIUM CHLORIDE 0.9% IV 1,000 ML 999 ML (21:42)
[2022-10-13] MEDS: LACTATED RINGERS 1,000 ML 999 ML IV CONT (21:43)
[2022-10-13 22:51] LABS: Reflex Lactic Acid Yes or No Add Lactic
[2022-10-13 23:06] LABS: Appearance Urine Clear (Clear); Bilirubin Urine 1+ (Negative); Blood Urine Negative (Negative); Color Urine Yellow (Yellow); Glucose Urine UA Negative (Negative); Ketones Urine Trace (Negative); Leukocyte Esterase Ur Negative LEU/UL (Negative); Nitrate Urine Negative (Negative); Protein Urine Trace (Negative); Specific Grav Ur 1.025 (1.010-1.020); pH Urine 5.5 (5.0-8.0)
[2022-10-13 23:11] LABS: Add Urine Microscopic? YES; RBC Urine 0-2 /hpf (0-2); Squamous Epithelial Cell Urine Rare /hpf (Few); WBC Urine 0-3 /hpf (0-3)
[2022-10-13 23:12] LABS: Bacteria Urine Trace /hpf; Budding Yeast Urine Present /hpf
[2022-10-13 23:17] LABS: Lactic Acid 2.7 mmol/L (0.4-2.0)
[2022-10-13 23:25] LABS: Amphetamine Screen Urine Negative (Negative); Barbiturate Screen Urine Negative (Negative); Benzodiazepines Screen Urine Negative (Negative); Cannabinoid Screen Urine Negative (Negative); Cocaine Screen Urine Negative (Negative); Methadone Screen Urine Negative (Negative); Opiate Screen Urine Negative (Negative); Phencyclidine Screen Urine Negative (Negative)
[2022-10-14] VITALS (11 sets, daily range): BP systolic 90–124; BP diastolic 49–82; PULSE 75–98; RESP 16–20; TEMP 36.2–37; O2SAT 95–99; BMI 20.2
--- NOTE | 2022-10-14 01:08 | ADMGEN ---
This patient, Mai Ferrera, was admitted to 2nd Floor Room 226-2. Patient/family oriented to hospital policies and general routines including ID bracelet, bed and alarms, visiting hours, pain management, procedures, bathroom and other care routines, personal items, smoking policy, room service/diet, and visiting hours. Information on how to activate the Rapid Response Team has been discussed. Patient/Family are encouraged to report perceived risks to care and to ask questions if they do not understand what they are told or what they should do. Patient states she was just at [facility], states she is forgetful, Has trouble remembering things. states my kids are worried Im not eating enough but I eat just fine
[2022-10-14] MEDS: LACTATED RINGERS 1,000 ML 50 ML IV CONT (02:00)
[2022-10-14 05:17] LABS: Basophils Absolute Auto 0.02 K/mm3 (0.00-0.10); Basophils Percent Auto 0.3 % (0.0-1.0); Eosinophils Absolute Auto 0.01 K/mm3 (0.02-0.50); Eosinophils Percent Auto 0.1 % (1.0-6.0); Hematocrit 26.6 % (35.0-42.0); Hemoglobin 8.4 g/dL (11.7-13.8); Immature Granulocyte Absolute 0.03 K/mm3 (0.00-0.00); Immature Granulocyte Percent A 0.4 % (0.0-0.0); Lymphocytes Absolute Auto 1.48 K/mm3 (1.10-4.50); Mean Corpuscular HGB Conc 31.6 g/dL (32.0-36.0); Mean Corpuscular Hemoglobin 31.1 pg (27.0-31.0); Mean Corpuscular Volume 98.5 fL (78.0-102.0); Mean Platelet Volume 8.9 fl (9.2-11.8); Monocytes Absolute Auto 0.57 K/mm3 (0.10-0.90); Monocytes Percent Auto 7.3 % (2.0-11.0); Neutrophils Absolute Auto 5.7 K/mm3 (1.7-7.2); Neutrophils Percent Auto 72.9 % (50.0-70.0); Platelet Count Result 289 K/mm3 (150-420); Red Cell Distribution Width 20.6 % (11.6-14.4); White Blood Count 7.8 K/mm3 (4.8-10.8)
[2022-10-14 05:27] LABS: Anion Gap 10 mmol/L (8-16); Blood Urea Nitrogen 17 mg/dL (7-18); Calcium 7.3 mg/dL (8.5-10.1); Carbon Dioxide 22 mmol/L (21-32); Chloride 108 mmol/L (98-108); Estimated CRCL calculation 33 ml/min; Estimated Glomerular Filt Rate 53; Glucose 90 mg/dL (70-99); Osmolality Calculated 291 mOsm/kg (285-295); Potassium 3.6 mmol/L (3.5-5.1); Sodium 140 mmol/L (136-145)
[2022-10-14 05:37] LABS: Lactic Acid Reflex 1.1 mmol/L (0.4-2.0)
--- NOTE | 2022-10-14 07:29 | PM.IMHP ---
H&P: HPI History of Present Illness Date/Time: 10/14/22 07:29 Chief Complaint: WEakness, not eating, unresponsiveness Narrative: this is a 81-year-old that presented to the emergency room who was stuck on the stool toilet and was a witness nonresponsive for 1 minute per EMS. Patient has episodes of confusion denies any health problems although she is on Neurontin questionably for neuropathy after discussion with patient's daughter Connie who states that patient had a fracture of her hip and her shoulder over the last year they have been staying with their her no sisters taken turned stent with a 24 hours a day. According to patient's daughter patient has been seen 3 talking to people very confused unable answer questions although she does not have a diagnosis of dementia which is more than likely what is going on. Patient was recently in a senior care and she did not like and left after 3 days in the family has been trying to take care for. Patient's labs are basically unremarkable she does have a hemoglobin of 8.4 patient denies any shortness of breath any dizziness and/or pain. According to Ms. Ferrera she just wants to lay in bed rest patient daughter says that is all she wants to do is lying bed and she has not been eating. Patient daughter states she will ignore you or not answer at time when she does not want to do something. Patient was a senior care last year patient left within 3 days that she did not like it. Patient would like to try to take home but if not they would like to see with assisted living is that she qualify and or whether other options is if they are unable to take care of the knee may need to send her to a senior care Review of Systems Review of Systems: Weakness, tiredness All systems reviewed & are unremarkable except as noted in HPI and below PMFSH Past Medical History Medical History Breast cancer Left Breast Removed. Hypertension Osteoporosis Overweight TBI (traumatic brain injury) Surgical History Surgical History History of bilateral knee replacement History of left hip replacement Hx of cataract surgery Hx of tonsillectomy Family History Family History Father Cancer Mother Acute myocardial infarction Rheumatoid arthritis Heart disease Mother Acute myocardial infarction Family history of rheumatoid arthritis Father Family history of malignant neoplasm Social History Social History Smoking status: Never smoker Second hand tobacco smoke exposure: Yes Alcohol intake: never Substance use: never Substance use type: does not use Lack of Transportation: No Lack of Food: Never True Current Housing: I Have Housing Concerned About Future Housing: No Difficulty Paying Gas/Electric Bills: No Difficulty Paying for Meds: No Currently Unemployed: No Education: High School Diploma/GED Difficulty w/ Childcare or Family Care: No Living arrangements: with family Additional living arrangements comments: . 4 children. 2 step-children. Occupation/Education: retired Gender identity (if verbalized by the patient): Female Sexual Orientation (if Verbalized by the Patient): Straight or Heterosexual Spiritual care concerns: No Meds Home Medications and Allergies Home Medications Medication Instructions Recorded Confirmed Type gabapentin 100 mg capsule 100 mg PO BID #180 caps 10/01/22 10/13/22 Rx mirtazapine 30 mg tablet 30 mg PO QHS #90 tabs 10/05/22 10/13/22 Rx Allergies Allergy/AdvReac Type Severity Reaction Status Date / Time aspirin Allergy Unknown Unknown Verified 09/13/22 07:41 Vital Signs Vital Signs - 24 hr 10/13/22 19:29 10/14/22 00:50 10/14/22 00:23 Temperature 98
[2022-10-14] MEDS: SULFAMETHOXAZOLE/TRIMETHOPRIM 800/160 MG DS TABLET 1 TAB PO ×2 (09:19→20:55)
[2022-10-14] MEDS: ENOXAPARIN 30 MG/0.3 ML SYRINGE SUB-Q (09:20)
[2022-10-14] MEDS: FUROSEMIDE INJ 20 MG/2 ML VIAL IV PUSH (09:20)
[2022-10-14] MEDS: FLUCONAZOLE 100 MG TABLET PO (09:20)
[2022-10-14] MEDS: GABAPENTIN 100 MG CAPSULE PO ×2 (09:20→20:56)
[2022-10-14] MEDS: MIRTAZAPINE 15 MG TABLET 30 MG PO (20:55)
--- NOTE | 2022-10-15 01:00 | ECHO_ITS ---
Patient Info Name: Mai Ferrera Age: 81 years : 1940 Gender: Female Ht: 64 in Wt: 117 lbs BSA: 1.55 m2 HR: 79 bpm BP: 110 / 58 mmHg Heart Rhythm: Sinus Rhythm Technical Quality: Fair Exam Date: 10/15/2022 3:26 PM Exam Location: [facility] Patient Status: Inpatient Admit Date: 10/13/2022 Staff Ordering Physician: Paco Escobedo MD Quality Assurance Assistant: Liss Alex RDCS Attending Provider: Domingo Man MD Referring Physician: Gregg MADSEN; Exam Type: CA echo doppler color flow Study Info Indications - TIA Complete two-dimensional, color flow and Doppler transthoracic echocardiogram is performed. Summary 1. Complete two-dimensional, color flow and Doppler transthoracic echocardiogram is performed. 2. Left ventricular chamber dimension is normal. 3. Left ventricular systolic function is normal, estimated at 55-60%. 4. There is mild concentric increased left ventricular wall thickness. 5. The left ventricular diastolic function is normal. 6. E/e' 9 is minimally elevated. 7. There is mild aortic valve sclerosis. 8. There is mild mitral valve regurgitation. 9. There is mild tricuspid valve regurgitation. 10. No pulmonary hypertension, estimated pulmonary arterial systolic pressure is 29 mmHg. Left Ventricle E/e' 9 is minimally elevated. Left ventricular chamber dimension is normal. Left ventricular systolic function is normal, estimated at 55-60%. There is mild concentric increased left ventricular wall thickness. The left ventricular diastolic function is normal. Right Ventricle Right ventricular systolic function is normal and with normal TAPSE 2.0 cm. Right ventricular chamber dimension is normal. Left Atria Left atrial chamber dimension is normal. Right Atria Right atrial chamber dimension is normal. Aortic Valve The aortic valve is trileaflet. There is mild aortic valve sclerosis. There is no aortic valve stenosis. There is no aortic valve regurgitation. Pulmonic Valve There is no pulmonic regurgitation. Mitral Valve There is no mitral valve stenosis. There is mild mitral valve regurgitation. Tricuspid Valve There is mild tricuspid valve regurgitation. No pulmonary hypertension, estimated pulmonary arterial systolic pressure is 29 mmHg. Pericardium/Pleural There is no pericardial effusion. Inferior Vena Cava Normal inferior vena cava with >50% collapse upon inspiration consistent with normal right atrial pressure, 5 mmHg. Aorta The aortic root size at the sinus of Valsalva is normal. Left Ventricular Outflow Tract Name Value Normal LVOT 2D LVOT Diameter 2.0 cm LVOT Doppler LVOT Peak Velocity 88 cm/s LVOT Peak Gradient 3 mmHg LVOT Mean Gradient 1 mmHg LVOT VTI 11 cm LVOT VTI/AV VTI Ratio 0.6 LVOT Stroke Volume 33 ml Pulmonic Valve Name Value Normal RVOT Doppler
[2022-10-15 03:31] VITALS: PULSE 80
[2022-10-15 04:00] VITALS: BP 104/55; PULSE 74; RESP 15; TEMP 36.8; O2SAT 97
[2022-10-15 08:00] VITALS: BP 110/45; PULSE 76; PULSE 79; RESP 16; TEMP 36.6; O2SAT 97
[2022-10-15] MEDS: ENOXAPARIN 30 MG/0.3 ML SYRINGE SUB-Q (09:46)
[2022-10-15] MEDS: FLUCONAZOLE 100 MG TABLET PO (09:46)
[2022-10-15] MEDS: FUROSEMIDE INJ 20 MG/2 ML VIAL IV PUSH (09:46)
[2022-10-15] MEDS: SULFAMETHOXAZOLE/TRIMETHOPRIM 800/160 MG DS TABLET 1 TAB PO (09:47)
[2022-10-15] MEDS: GABAPENTIN 100 MG CAPSULE PO (09:47)
--- NOTE | 2022-10-15 10:47 | PM.DS ---
DS: Admitting Diagnosis Discharge Date 10/15/2022 Admitting Diagnosis Generalized weakness, Dementia, CKD DS: Discharge Diagnosis Discharge Diagnosis (1) CKD (chronic kidney disease): Qualifiers: Chronic kidney disease stage: stage 3 (moderate) Chronic kidney disease stage 3 subtype: stage 3b (GFR 30-44) Qualified Code(s): N18.32 - Chronic kidney disease, stage 3b Code(s): N18.9 - Chronic kidney disease, unspecified Status: Chronic Assessment and Plan: At baseline renal function at discharge. (2) Generalized weakness: Code(s): R53.1 - Weakness Status: Acute Assessment and Plan: PT/OT evaluate and treat plan for discharge to home with home health (3) Dementia: Qualifiers: Dementia behavioral or psychological symptom: unspecified whether behavioral, psychotic, or mood disturbance or anxiety Dementia severity: mild Dementia type: unspecified type Qualified Code(s): F03.A0 - Unspecified dementia, mild, without behavioral disturbance, psychotic disturbance, mood disturbance, and anxiety Code(s): F03.90 - Unspecified dementia, unspecified severity, without behavioral disturbance, psychotic disturbance, mood disturbance, and anxiety Status: Chronic Assessment and Plan: very forgetful per family hallucination talking to people not there not wanting to eat or do anything (4) Hypertension: Qualifiers: Hypertension type: unspecified Qualified Code(s): I10 - Essential (primary) hypertension Code(s): I10 - Essential (primary) hypertension Status: Chronic Assessment and Plan: stable continue to monitor (5) Brain TIA: Code(s): G45.9 - Transient cerebral ischemic attack, unspecified Status: Chronic Assessment and Plan: CT negative Neuro Negative no abnormality noted at this time Plan Discharge today to home with Home Health through [facility]. DS: Summary Hospital Course Reason for hospitalization: Dementia, Generalized weakness Hospital Course: This 81 year old female patient with PMH of Dementia, TBI, and breast cancer, was admitted to the hospital observation on 10/14/22 after presenting to the ER via EMS after she was found on the toilet with at least one minute of unresponsiveness. As of lately, the patient's mental status seems to have worsened and she has had visual and auditory hallucinations of people that aren't there requiring her daughters and family to stay with her. She has been more lethargic with less activity and less desire to eat and converse. She does not want to interact and states that she just wants to rest. Her ER workup was essentially unremarkable and pt. was admitted for IV hydration and for evaluation. Pt.s family do not wish for her to go to a fpc. She answers questions appropriately this AM and has no complaints of pain or dyspnea and no signs of distress. Specifically she has no headache, lightheadedness or dizziness. Status at Discharge Cognitive/behavioral status at discharge: At her baseline with dementia Functional status at discharge: uses cane/walker Overall status at discharge: patient is back to baseline Time Spent with Patient Time attestation: Total time spent providing and/or coordinating discharge services: Time spent: Greater than 30 minutes Specific discharge activities: Follow up, medications Exam Narrative: GENERAL:Well-appearing, Pale well-nourished, and in no acute distress. HEAD:Normocephalic, atraumatic. EYES: PERRLA and EOMI. ENT: Nares clear, no rhinorrhea or epistaxis. Mucous membranes moist. CHEST: Clear to diminishedauscultation. No respiratory distress. HEART: Regular rate and rhythm.Normal peripheral pulses. ABDOMEN: Soft, nontender, nondistended, normal active bowel sounds. EXTREMITIES: Normal range of motion. 1+ pitting edema. SKIN: Warm, dry, no rash.brusing in several healing states NEURO: No focal
[2022-10-15 12:00] VITALS: BP 110/58; PULSE 79; RESP 14; TEMP 36.2; O2SAT 98
[2022-10-15 16:00] VITALS: BP 120/56; PULSE 103; PULSE 109; RESP 16; TEMP 35.9; O2SAT 95
--- NOTE | 2022-10-15 18:50 | PC.NURSE ---
Patient discharged at 1838. All belongings taken with daughters. IV and telemetry d/c. Taken by w/c to private car. VSS. No complaints of pain. Family has no questions regarding discharge instructions. Instructed to call if they have any questions when they get home at any time.
--- NOTE | 2022-10-19 14:18 | PC.NURSE ---
Unable to contact for discharge call back.
== END 2022-10-15 18:50 | disposition home health service (06) ==
LOC: CHSED 23:31 → CHS2ND 10-14 07:21
PROVIDERS: Admitting Provider Internal Medicine; Emergency Provider Internal Medicine Critical Care Medicine; PCP Family Medicine; Visit Provider Internal Medicine
DX: G45.9 Transient cerebral ischemic attack, unspecified (principal); I12.9 Hypertensive chronic kidney disease with stage 1 through stage 4 chronic kidney disease, or unspecified chronic kidney disease; N18.32 Chronic kidney disease, stage 3b; M81.0 Age-related osteoporosis without current pathological fracture; F03.90 Unspecified dementia, unspecified severity, without behavioral disturbance, psychotic disturbance, mood disturbance, and anxiety; Z87.820 Personal history of traumatic brain injury; Z96.642 Presence of left artificial hip joint; Z96.653 Presence of artificial knee joint, bilateral; Z20.822 Contact with and (suspected) exposure to COVID-19; Z85.3 Personal history of malignant neoplasm of breast; Z79.899 Other long term (current) drug therapy
CPT/HCPCS: 36415; 36600; 70450; 71045; 80048; 80053; 80307; 81001; 82805; 83605; 83690; 83880; 84443; 84484; 85025; 85610; 87040; 87637; 93005; 93306; 93880; 96361; 96372; 96374; 96375; 96376; 97110; 97161; 97530; 99285; A9270; G0378; G0379; J1650; J1940; J2405; J7030; J7120

== ENCOUNTER 2022-10-21 18:59 | Observation (INO) | payer MEDICARE, OTHER, SELFPAY ==
--- NOTE | ~2022-10-21 | XR_ITS ---
EXAMINATION: XR chest 1V portable DATE: 10/21/2022 19:36 INDICATION: Generalized weakness, fatigue and failure to thrive TECHNIQUE: frontal view of the chest was obtained. COMPARISON: Chest radiograph dated 10/13/2022 FINDINGS: Again seen are few scattered bilateral calcified pulmonary nodules consistent with old granulomatous disease. No focal airspace opacities, pulmonary edema, pleural effusion or pneumothorax. The cardiome diastinal silhouette is normal. Again seen is a now early chronic impacted fracture to surgical neck of the right humerus. IMPRESSION: 1. No acute cardiopulmonary disease. Reviewed, dictated and finalized at location A.
[2022-10-21 19:06] VITALS: BP 117/59; PULSE 98; RESP 20; TEMP 36.9; O2SAT 99
--- NOTE | 2022-10-21 19:12 | ECG_ITS ---
Measurements Intervals Sigurd Rate: 109 P: 58 DE: 113 QRS: 14 QRSD: 70 T: 208 QT: 295 QTc: 397 Interpretive Statements SINUS TACHYCARDIA WITH SHORT DE INTERVAL DELAYED PRECORDIAL R/S TRANSITION ST-T WAVE ABNORMALITY IN DIFFUSE LEADS- CONSIDER ISCHEMIA BASELINE ARTIFACT- I, II, III, AVR, AVL, V1-V3 ABNORMAL ECG COMPARED TO ECG 10/13/2022 19:37:47 NO SIGNIFICANT CHANGES Electronically Signed On 10-22-2022 7:39:20 CDT by Víctor Love D.O.
[2022-10-21 19:48] LABS: Basophils Absolute Auto 0.01 K/mm3 (0.00-0.10); Basophils Percent Auto 0.1 % (0.0-1.0); Eosinophils Absolute Auto 0.01 K/mm3 (0.02-0.50); Eosinophils Percent Auto 0.1 % (1.0-6.0); Hematocrit 23.8 % (35.0-42.0); Hemoglobin 7.9 g/dL (11.7-13.8); Immature Granulocyte Absolute 0.06 K/mm3 (0.00-0.00); Immature Granulocyte Percent A 0.7 % (0.0-0.0); Lymphocytes Absolute Auto 1.32 K/mm3 (1.10-4.50); Lymphocytes Percent Auto 14.7 % (18.0-42.0); Mean Corpuscular HGB Conc 33.2 g/dL (32.0-36.0); Mean Corpuscular Volume 96.4 fL (78.0-102.0); Mean Platelet Volume 8.9 fl (9.2-11.8); Monocytes Absolute Auto 0.38 K/mm3 (0.10-0.90); Monocytes Percent Auto 4.2 % (2.0-11.0); Neutrophils Absolute Auto 7.2 K/mm3 (1.7-7.2); Neutrophils Percent Auto 80.2 % (50.0-70.0); Nucleated Red Blood Cells Absolute Auto 0.04 K/mm3 (0.00-0.00); Nucleated Red Blood Cells Perc 0.4 % (0-0.0); Platelet Count Result 386 K/mm3 (150-420); Red Blood Count 2.47 M/mm3 (4.20-5.40); Red Cell Distribution Width 21.1 % (11.6-14.4)
[2022-10-21 20:10] LABS: Alanine Aminotransferase 27 U/L (14-59); Albumin Level 1.8 g/dL (3.4-5.0); Alkaline Phosphatase 147 U/L (46-116); Anion Gap 10 mmol/L (8-16); Aspartate Amino Transferase 42 U/L (15-37); Bilirubin,Total 0.7 mg/dL (0.00-1.00); Blood Urea Nitrogen 36 mg/dL (7-18); CRP 2.4 mg/dL (0.0-0.9); Calcium 7.2 mg/dL (8.5-10.1); Carbon Dioxide 25 mmol/L (21-32); Chloride 102 mmol/L (98-108); Estimated CRCL calculation 25 ml/min; Estimated Glomerular Filt Rate 42; Glucose 99 mg/dL (70-99); NT Pro B Type Natriuretic Pept 4319 pg/mL (0-450); Osmolality Calculated 292 mOsm/kg (285-295); Potassium 3.8 mmol/L (3.5-5.1); Sodium 137 mmol/L (136-145); Total Protein 4.7 g/dL (6.4-8.2)
[2022-10-21 20:11] LABS: Lactic Acid Reflex 1.6 mmol/L (0.4-2.0)
[2022-10-21 20:49] LABS: Occult Blood Positive (Negative)
--- NOTE | 2022-10-21 20:56 | ED.WEAKNESS ---
HPI - Weakness General Chief complaint: Weakness Stated complaint: weakness Time Seen by Provider: 10/21/22 19:07 Source: patient, family and EMS Mode of arrival: ambulatory Limitations: no limitations History of Present Illness HPI Narrative: this is an 81-year-old female that presents via EMS recently discharged from our hospital and has some history of hypertension chronic anemia. The patient's family called 911 because of progressive weakness with generalized weakness and decreased appetite with no fever chills no abdominal pain no nausea vomiting has been having loose dark stool. According to family and patient patient signed a DNR and wants only comfort measures with focus treatment. Patient and family state that care home placement is appropriate for her at this point. Denies any dysuria no abdominal pain no flank pain no hematuria. Complaint: generalized weakness Onset (ago): week(s) Duration: constant Location: generalized Severity: severe Related Data Allergies Allergy/AdvReac Type Severity Reaction Status Date / Time aspirin Allergy Unknown Unknown Verified 10/21/22 19:24 Review of Systems Review of Systems: All systems reviewed & are unremarkable except as noted in HPI and below PMFSH Past Medical History Medical History Breast cancer Left Breast Removed. Hypertension Osteoporosis Overweight TBI (traumatic brain injury) Surgical History Surgical History History of bilateral knee replacement History of left hip replacement Hx of cataract surgery Hx of tonsillectomy Family History Family History Father Cancer Mother Acute myocardial infarction Rheumatoid arthritis Heart disease Mother Acute myocardial infarction Family history of rheumatoid arthritis Father Family history of malignant neoplasm Social History Social History Smoking status: Never smoker Second hand tobacco smoke exposure: Yes Alcohol intake: never Substance use: never Substance use type: does not use Lack of Transportation: No Lack of Food: Never True Current Housing: I Have Housing Concerned About Future Housing: No Difficulty Paying Gas/Electric Bills: No Difficulty Paying for Meds: No Currently Unemployed: No Education: High School Diploma/GED Difficulty w/ Childcare or Family Care: No Living arrangements: with family Additional living arrangements comments: . 4 children. 2 step-children. Occupation/Education: retired Gender identity (if verbalized by the patient): Female Sexual Orientation (if Verbalized by the Patient): Straight or Heterosexual Spiritual care concerns: No Exam Const: General: ill appearing Nutritional Appearance: thin Limitations: physical limitations HENMT: Head: normal to inspection Neck: Neck: normal visual inspection Resp: Effort & Inspection: normal respiratory effort Cardio: Rate: regular rate Rhythm: regular rhythm GI: GI Palp: Yes Soft to palpation Auscultation: normal bowel sounds : General: Yes bladder normal to palpation Back/Spine/Pelvis: Back: no CVA tenderness Skin: General skin exam: pallor Rashes: no rashes Wounds: no wounds Neuro: General: no focal motor deficits Cranial nerves: Yes Nystagmus not present Speech: normal speech Psych: Mental Status: mental status grossly normal Course Course Emergency Course: Patient had blood work performed and shows that she has chronic anemia is close to her baseline approximately 1 week ago her H&H was 8.4 and 26 currently at 7.9 and 23.8 with a BNP of 4319 chest x-ray shows no acute cardiopulmonary findings. The patient complaining of generalized weakness with decreased appetite. Did sign a DNR with comfort measures
[2022-10-21 21:15] LABS: Appearance Urine Clear (Clear); Bilirubin Urine Negative (Negative); Blood Urine Negative (Negative); Color Urine Yellow (Yellow); Glucose Urine UA Negative (Negative); Ketones Urine Negative (Negative); Leukocyte Esterase Ur Negative LEU/UL (Negative); Nitrate Urine Negative (Negative); Protein Urine Negative (Negative); Specific Grav Ur 1.015 (1.010-1.020); Urobilinogen Urine 0.2 mg/dL (0.2-1.0); pH Urine 5.5 (5.0-8.0)
[2022-10-21 21:17] LABS: Add Urine Microscopic? NO
--- NOTE | 2022-10-21 21:45 | PC.NURSE ---
2100 PT REFUSED TO BE TRANSFERRED PT REFUSED THE UNIT OF BLOOD AND PT REFUSED THE IV PT WANTS COMFORT MEASURES ONLY
[2022-10-21 21:47] VITALS: BP 110/46; PULSE 105; RESP 20; TEMP 36.7; O2SAT 96
--- NOTE | 2022-10-21 22:05 | ADMGEN ---
This patient, Mai Ferrera, was admitted to 2nd Floor Room 204-2. Patient/family oriented to hospital policies and general routines including ID bracelet, bed and alarms, visiting hours, pain management, procedures, bathroom and other care routines, personal . Patient/Family are encouraged to report perceived risks to care and to ask questions if they do not understand what they are told or what they should do.
[2022-10-21 22:23] VITALS: BMI 20.5
--- NOTE | 2022-10-21 23:10 | PC.NURSE ---
patient refused to have a catheter placed.
[2022-10-21 23:13] VITALS: BP 112/58; PULSE 105; PULSE 88; RESP 14; RESP 20; TEMP 36.1; O2SAT 96; O2SAT 97
--- NOTE | 2022-10-21 23:42 | PC.NURSE ---
patient refused to have a urinary catheter placed.
[2022-10-22] VITALS (7 sets, daily range): BP systolic 108–112; BP diastolic 52–58; PULSE 74–97; RESP 16–22; TEMP 36.1–36.8; O2SAT 96–98
--- NOTE | 2022-10-22 06:29 | PC.NURSE ---
patient has been drinking soda with each time entering the room. she has tolerated it well. does complain of nausea at times but it does resolve after a few moments. refuses anything for pain or nausea. no compaints of pain at this time. patient did have a loose black stool changed and cleaned per staff. will monitor for further black stools.
[2022-10-22] MEDS: GABAPENTIN 100 MG CAPSULE PO ×2 (08:10→17:18)
--- NOTE | 2022-10-22 10:48 | PM.IMHP ---
H&P: HPI History of Present Illness Date/Time: 10/22/22 10:48 Chief Complaint: weakness Narrative: ?this is an 81-year-old female that presents via EMS recently discharged from our hospital and has some history of hypertension chronic anemia.? The patient's family called 911 because of progressive weakness with generalized weakness and decreased appetite with no fever chills no abdominal pain no nausea vomiting has been having loose dark stool.? According to family and patient patient signed a DNR and wants only comfort measures with focus treatment.? Patient and family state that detention placement is appropriate for her at this point.? Denies any dysuria no abdominal pain no flank pain no hematuria. Review of Systems Review of Systems: ROS unobtainable: Yes unobtainable due to medical condition PMFSH Past Medical History Medical History Breast cancer Left Breast Removed. Hypertension Osteoporosis Overweight TBI (traumatic brain injury) Surgical History Surgical History History of bilateral knee replacement History of left hip replacement Hx of cataract surgery Hx of tonsillectomy Family History Family History Father Cancer Mother Acute myocardial infarction Rheumatoid arthritis Heart disease Mother Acute myocardial infarction Family history of rheumatoid arthritis Father Family history of malignant neoplasm Social History Social History Smoking status: Never smoker Second hand tobacco smoke exposure: Yes Alcohol intake: never Substance use: never Substance use type: does not use Lack of Transportation: No Lack of Food: Never True Current Housing: I Have Housing Concerned About Future Housing: No Difficulty Paying Gas/Electric Bills: No Difficulty Paying for Meds: No Currently Unemployed: No Education: High School Diploma/GED Difficulty w/ Childcare or Family Care: No Living arrangements: with family Additional living arrangements comments: . 4 children. 2 step-children. Occupation/Education: retired Gender identity (if verbalized by the patient): Female Sexual Orientation (if Verbalized by the Patient): Straight or Heterosexual Spiritual care concerns: No Meds Home Medications and Allergies Home Medications Medication Instructions Recorded Confirmed Type gabapentin 100 mg capsule 100 mg PO BID #180 caps 10/01/22 10/21/22 Rx mirtazapine 30 mg tablet 30 mg PO QHS #90 tabs 10/05/22 10/21/22 Rx acetaminophen 325 mg tablet (Mapap 650 mg PO Q4H PRN Mild Pain (1-3) 10/22/22 Rx (acetaminophen)) Or Fever #30 tabs hydrocodone 5 mg-acetaminophen 325 1 tablet PO Q4H PRN Moderate Pain 10/22/22 Rx mg tablet (4-6) #14 tabs trazodone 50 mg tablet 50 mg PO HS PRN Insomnia #30 tabs 10/22/22 Rx Allergies Allergy/AdvReac Type Severity Reaction Status Date / Time aspirin Allergy Unknown Unknown Verified 10/21/22 19:24 Vital Signs Vital Signs - 24 hr 10/21/22 19:06 10/21/22 21:47 10/21/22 23:13 Temperature 36.9 C 36.7 C Pulse Rate 98 105 H 88 Respiratory Rate 20 20 14 Blood Pressure 117/59 L 110/46 L Pulse Oximetry 99 96 97 Oxygen Delivery Room Air Room Air Room Air 10/21/22 23:13 10/21/22 23:13 10/22/22 00:00 Temperature 36.1 C L 36.1 C L Pulse Rate 88 105 H 88 Respiratory Rate 14 20 16 Blood Pressure 112/58 L 112/58 L Pulse Oximetry 97 96 97 Oxygen Delivery Room Air Room Air Room Air 10/22/22 07:53 Temperature 36.6 C Pulse Rate 97 Respiratory Rate 16 Blood Pressure 108/55 L Pulse Oximetry 96 Oxygen Delivery Room Air Exam Narrative: GENERAL: A frail elderly female that is malnutrition in no apparent distress. HEAD: normocephalic, atraumatic. EYES: PERRL. Sclera
[2022-10-22] MEDS: ACETAMINOPHEN 325 MG TABLET 650 MG PO (12:30)
--- NOTE | 2022-10-22 16:03 | PC.NURSE ---
Hospice nurse here to do intake interview with patient. Interview went well. Awaiting decision from family on intermediate placement.
[2022-10-22] MEDS: MORPHINE SULFATE (*CRX) 2 MG/ML INJ IV PUSH (18:10)
[2022-10-22] MEDS: ONDANSETRON INJ 4 MG/2 ML VIAL IV PUSH (18:10)
--- NOTE | 2022-10-22 20:09 | PC.NURSE ---
patient was complaining of not being able to breathe. 02 saturation at 97% room air. respirations elevated at 22, patient asked to go to the Dr., this nurse explained to patient that she was in the hospital and asked what she needed and if she remembered why she was here. patient asked what we could do for her and this nurse explained her situation and what her wishes were previous to this conversation and asked if these were still her wishes to have nothing done to prolong her life, patient stated that yes she was sure she did not want anything done. 02 was placed at 1L/nc for comfort measures. v/s being monitored patient is alert to self and at times place, patient remains weak, staff turning and repositioning q2H and at patients request. patient is taking small sips of soda at this time. will continue to monitor patient for any other s/s of pain or resp. distress. this nurse also asked patient if she wanted her family called to come in, she stated that she did not want to bother them.
--- NOTE | 2022-10-22 20:35 | PC.NURSE ---
This RN left a message for Clari Mccauley NP for a possible prn order of Ativan. Pt has elevated respirations and some anxiety. Awaiting response for a new orders.
--- NOTE | 2022-10-22 21:29 | PC.NURSE ---
2114 this nurse went into this patients room to check her and found this patient to be pale in color, no breath sounds, no heart tones, no pupil response, no reaction to sternal rub,. Kristin Steward.N. in the room as well to assess patient. 2116- notified Clari Mccauley N.P of this, time of 2114. 2124- notified coronor 2129 notified [facility] transplant patient is not a canidate for donor. attempted to notify DARCY- Emely no answer and VM is full. notified Salvador and Bruna of the , neither wanted to come to see her prior to her leaving the hospital. left a message for Connie as well on her VM to call the hospital. nothing in the chart for home, awaiting call from the other daughters.
--- NOTE | 2022-10-22 23:52 | PC.NURSE ---
2325-patient left with home . Sohail. personal belongings went with her clothing and dentures. family is aware and chose the home.
--- NOTE | 2022-10-23 09:50 | P.DN_ITS ---
Discharge Summary Date and Time Date of : 10/22/22 Time of : 21:15 Provider Pronounced By: Paco Luciano RN and Deya Rousseau LPN Probable Cause of Probable Cause of : anemia Summary Hospital Course: this is an 81-year-old female that presents via EMS recently discharged from our hospital and has some history of hypertension chronic anemia.? The patient's family called 911 because of progressive weakness with generalized weakness and decreased appetite with no fever chills no abdominal pain no nausea vomiting has been having loose dark stool.? According to family and patient patient signed a DNR and wants only comfort measures with focus treatment.? Patient and family state that assisted placement is appropriate for her at this point.? patient condition deteriorated throughout the night patient pronounced at 9:15 p.m. Additional Data Confirmation of as documented by pronouncing clinician: Pupillary Reflex, Palpable Pulses, Response to Stimuli, Heart Tones and Breath Sounds Name of Provider Notified: Clari Mccauley NP Time Provider Notified: 21:17 Provider Requests Autopsy: No Date [facility] Notified of : 10/22/22 Time [facility] Notified of : 21:27
--- NOTE | 2022-10-25 15:02 | PCCCNOTE ---
Notified [facility], [facility] to cancel services as pt .
== END 2022-10-22 23:25 | disposition expired ==
LOC: CHSED 21:02 → CHS2ND 21:43
PROVIDERS: Admitting Provider Internal Medicine; Emergency Provider Emergency Medicine; PCP Family Medicine; Visit Provider Internal Medicine
DX: R53.1 Weakness (principal); D64.9 Anemia, unspecified; I12.9 Hypertensive chronic kidney disease with stage 1 through stage 4 chronic kidney disease, or unspecified chronic kidney disease; N18.32 Chronic kidney disease, stage 3b; E46 Unspecified protein-calorie malnutrition; M81.0 Age-related osteoporosis without current pathological fracture; Z51.5 Encounter for palliative care; Z68.20 Body mass index [BMI] 20.0-20.9, adult; Z87.820 Personal history of traumatic brain injury; Z96.653 Presence of artificial knee joint, bilateral; Z96.642 Presence of left artificial hip joint; Z85.3 Personal history of malignant neoplasm of breast; Z90.12 Acquired absence of left breast and nipple
CPT/HCPCS: 36415; 71045; 80053; 81003; 83605; 83880; 85025; 86140; 86850; 86900; 86901; 87040; 93005; 96374; 96375; 99285; A9270; G0378; J2270; J2405